=== PATIENT | female | born 1965 | race Caucasian/White ===

== ENCOUNTER 2018-03-12 21:55 | Emergency (ER) | payer MEDICAID ==
[~2018-03-12] VITALS: Ht 162.6 cm; Wt 104.0 kg
[~2018-03-12 21:55] MED LIST: AMOX125T PO; BENZ1TAB10 PO; DIVA-78 PO; FLUP10 PO; GLIP5 PO; GLUC1VIA3 IM; HALO5TAB2 PO; INSNOV SQ; LORA2TAB2 PO; METF1000 PO; OLAN7.5T2 PO; QUET100T PO; RISP3 PO; SITA100 PO; ZOLP10TA7 PO
[2018-03-12 22:14] LABS: GLUCOSE,POINT OF CARE 322 MG/DL (70-110)
[2018-03-12] MEDS ORDERED: PIOG30TA10 PO (22:37)
[2018-03-12] MEDS ORDERED: TOPI25 PO (22:37)
[2018-03-12] MEDS ORDERED: SIMV-261 PO (22:37)
[2018-03-12] MEDS ORDERED: DIPH50 PO (22:37)
[2018-03-12 22:46] LABS: BASOPHILS % (AUTO) 0.6 % (0.0-2.0); EOSINOPHILS % (AUTO) 2.4 % (1.0-6.0); HEMATOCRIT 40.1 % (36-46); HEMOGLOBIN 13.8 g/dL (12.0-16.0); LYMPHOCYTES % (AUTO) 29.8 % (22.0-44.0); MEAN CORPUSCULAR HEMOGLOBIN 32.9 pg (26.0-34.0); MEAN CORPUSCULAR HGB CONC 34.5 G/dL (31.0-37.0); MEAN CORPUSCULAR VOLUME 95 fL (80-100); MONOCYTES # (AUTO) 0.7 K/uL (0.1-1.0); MONOCYTES % (AUTO) 6.6 % (2.0-9.0); NEUTROPHILS # (AUTO) 6.1 K/uL (1.8-7.7); NEUTROPHILS % (AUTO) 60.6 % (40.0-70.0); PLATELET COUNT (AUTO) 258 K/uL (150-450); RED BLOOD CELL COUNT(AUTO) 4.21 MIL/uL (4.00-5.20); RED CELL DISTRIBUTION WIDTH 13.8 % (11.5-14.5)
[2018-03-12 22:54] LABS: ANION GAP 4 mmol/L (8-16); CALCIUM, TOTAL 8.7 mg/dL (8.8-10.5); CARBON DIOXIDE 30 mmol/L (22-29); CHLORIDE 104 mmol/L (98-107); CREATININE 0.59 mg/dL (0.60-1.30); GLOMERULAR FILTR. RATE CALC > 60 mL/min (>60); GLUCOSE,RANDOM 337 mg/dL (70-110); POTASSIUM 3.8 mmol/L (3.5-5.1); SODIUM SERUM 138 mmol/L (136-145); UREA NITROGEN, BLOOD 16 mg/dL (7-18)
[2018-03-12 23:02] LABS: ALANINE AMINOTRANSFERASE 21 U/L (12-78); ALBUMIN 2.9 g/dL (3.4-5.0); ALKALINE PHOSPHATASE 81 U/L (46-116); ASPARTATE AMINOTRANSFERASE 17 U/L (15-37); BILIRUBIN,TOTAL 0.4 mg/dL (0.1-1.0); TOTAL PROTEIN, SERUM 6.9 g/dL (6.4-8.2); VALPROIC ACID 28 mcg/mL (50-100)
[2018-03-12 23:17] LABS: AMPHET/METH SCREEN,URINE NEGATIVE (NEGATIVE); BARBITURATE SCREEN, URINE NEGATIVE (NEGATIVE); BENZODIAZEPINES SCREEN,URINE NEGATIVE (NEGATIVE); CANNABINOID SCREEN,URINE NEGATIVE (NEGATIVE); COCAINE SCREEN,URINE NEGATIVE (NEGATIVE); METHADONE SCREEN, URINE NEGATIVE (NEGATIVE); OPIATE SCREEN,URINE NEGATIVE (NEGATIVE); PHENCYCLIDINE SCREEN,URINE NEGATIVE (NEGATIVE)
[2018-03-12 23:33] LABS: SALICYLATE < 2.8 mg/dL (2.8-20.0)
[2018-03-12 23:36] LABS: ACETAMINOPHEN < 2 mcg/mL (10-30)
[2018-03-13 01:11] VITALS: BP 124/65
== END 2018-03-13 01:11 | disposition home or self-care (01) ==
LOC: EMS 21:57
DX: R44.3 Hallucinations, unspecified (principal); F31.9 Bipolar disorder, unspecified; F20.9 Schizophrenia, unspecified; E11.9 Type 2 diabetes mellitus without complications; F17.210 Nicotine dependence, cigarettes, uncomplicated; Z88.8 Allergy status to other drugs, medicaments and biological substances; Z79.4 Long term (current) use of insulin; Z79.84 Long term (current) use of oral hypoglycemic drugs
CPT/HCPCS: 36415; 80053; 80164; 80307; 82962; 85025; 99285; G0480 ×2; G0481